=== PATIENT | male | born 1965 | race Caucasian/White ===

== ENCOUNTER 2024-07-20 13:16 | Emergency (ER) | payer OTHER, SELFPAY ==
[2024-07-20 13:27] VITALS: BP 128/87
--- NOTE | 2024-07-20 14:00 | ED.GENMED ---
History of Present Illness
General
Chief Complaint: Crisis Evaluation
Time Seen by Provider: 07/20/24 13:40
History of Present Illness
History of Present Illness:
Patient is a 58-year-old male with history of depression, anxiety prior suicide attempts when he was in his 30s presenting to the emergency room with suicidal ideation. Patient states that he was extremely sad and depressed today and he was having
thoughts of hurting himself. His plan was to hang himself. He does state that when he was younger in his 30s he did attempt to kill himself. He does state that he last hurt himself by cutting but that was many years ago. He has not done any
attempts at self-harm for many years. Denies any HI hallucinations or delusions. Denies any drug or alcohol use. He does state that he was inpatient 3 months ago though that was for alcohol. He has not had any psychiatric inpatient stays for
quite some time. He denies any medical complaints.
Phy Exam
Physical Exam
Physical Exam:
GENERAL: in no acute distress
HEENT: normocephalic, extraocular movements intact, moist oral mucosa
NECK: normal inspection
RESPIRATORY: no respiratory distress, clear to auscultation bilaterally
CARDIOVASCULAR: regular rate and rhythm
ABDOMEN/: soft, non-distended, non-tender to palpation, no rebound or guarding
EXTREMITIES: non-tender, no edema/swelling
NEUROLOGIC: awake and alert, moves all extremities
Psych: Alert and oriented x 3, normal mood and flat affect, speech normal not pressured, coherent thought process, not tangential, currently suicidal but not homicidal cooperative and communicating, no active auditory or visual hallucinations
SKIN: warm
Course
Orders/Labs/Results
Orders:
Orders
07/20/24 13:36
1:1 Observation - Suicide/ Violent Behavior As Directed
07/20/24 13:59
Crisis Consult Urgent
Reason for Consult: suicidal ideation
07/20/24 15:26
Alcohol Urgent
Basic Metabolic Panel Urgent
Complete Blood Count/With Diff Urgent
Drug Screen, Urine [Urine Drug Abuse Screen] Urgent
Date Specimen was Collected: 07/20/24
Time Specimen was Collected: 14:58
Vital Signs
Initial and Last Documented VS:
Initial Vital Signs
Temp Pulse Resp BP Pulse Ox
97.7 F 83 18 128/87 97
07/20/24 13:27 07/20/24 13:27 07/20/24 13:27 07/20/24 13:27 07/20/24 13:27
Last Documented Vital Signs
Temp Pulse Resp BP Pulse Ox
97.7 F 83 18 128/87 97
07/20/24 13:27 07/20/24 13:27 07/20/24 13:27 07/20/24 13:27 07/20/24 13:27
MDM/Problems Addressed
Differential Diagnosis Includes:
Patient is a 58-year-old man presenting to the emergency department with suicidal thoughts with a plan. Vitals unremarkable and exam is reassuring. Patient currently has no medical complaints at this time. He is medically clear for evaluation by
crisis. Will discuss with crisis as he currently is at [facility].
*Critical Care Note
Total Time (30-74mins, 75-104mins- exclusive of procedures): Not Applicable
Update Note
Update Note:
Crisis evaluated patient. They also discussed with [facility]. Per the director of the [facility] they do have plethora of psychiatric resources including psychiatry and access to an ACT team. Patient does feel safe going back. He has not
acted on any of his thoughts in many years. He just states that he was overwhelmed. At this time he is denying any suicidal thoughts or plans to me. He does agree that there are significant amount of resources at [facility].
ED Attending Note
-
Portions of this chart may have been created with voice recognition software.� Occasional wrong word or��sound alike� substitutions may have occurred due to the inherent limitations of voice recognition software.
Discharge Plan
Departure
Patient Status:: 201
Interventions
Interventions:
*Risk Screen - Suicide Last Done: 07/20/24 13:32
ED-Psychological Assessment Last Done: 07/20/24 13:43
Discharge Date and Time
Print Language: OCCITAN
[2024-07-20 15:38] LABS: % Basophils 1.4 % (0-2); % Eosinophils 5.8 % (0-6); % Immature Granulocytes 0.3 % (0-0.5); % Lymphocytes 22.7 % (20.5-51.1); % Monocytes 10.1 % (1.7-9.3); % Neutrophils 59.7 % (42.2-75.2); Absolute Basophils 0.1 10^3/uL (0-0.2); Absolute Eosinophils 0.3 10^3/uL (0-0.7); Absolute Lymphocytes 1.3 10^3/uL (1.2-3.4); Absolute Monocytes 0.6 10^3/uL (0.1-0.6); Absolute Neutrophils 3.4 10^3/uL (1.4-6.5); Hematocrit 38.1 % (39.0-52.0); Hemoglobin 13.3 g/dL (13.0-18.0); Mean Corp Hgb Conc. 34.9 g/dL (33.0-37.0); Mean Corpuscular Hgb 31.6 pg (27.0-31.0); Mean Corpuscular Volume 90.5 fL (80.0-94.0); Mean Platelet Volume 9.8 fL (7.4-10.4); Nucleated Red Blood Cells % 0 % (-); Platelet Count 218 10^3/uL (130-400); Red Blood Cell Count 4.21 10^6/uL (4.70-6.10); White Blood Cell Count 5.7 10^3/uL (4.8-10.8)
[2024-07-20 15:54] LABS: Blood Urea Nitrogen 12 mg/dl (9-20); Calcium 9.2 mg/dl (8.4-10.2); Carbon Dioxide 29 mmol/L (22-30); Chloride 107 mmol/L (98-107); Glucose 106 mg/dl (70-99); Sodium 143 mmol/L (135-145); eGFR > 60.00
[2024-07-20 15:55] LABS: Alcohol None Detected
[2024-07-20 17:31] LABS: Amphetamines Negative (Negative); Barbiturates Negative (Negative); Benzodiazepines Negative (Negative); Buprenorphine Negative (Negative); Cocaine Negative (Negative); Marijuana Negative (Negative); Methadone Negative (Negative); Methamphetamines Negative (Negative); Opiates Negative (Negative); Phencyclidine Negative (Negative); Tricyclic Antidepressants Positive (Negative)
== END 2024-07-20 17:26 | disposition home or self-care (01) ==
LOC: EMR 13:16
PROVIDERS: EMERGENCY PHYSICIAN Student in an Organized Health Care Education/Training Program
DX: R45.851 Suicidal ideations (principal); F41.8 Other specified anxiety disorders
CPT/HCPCS: 99283; 80048; 80306; 82077; 85025